=== PATIENT | male | born 1985 | race Hispanic/Latino ===

== ENCOUNTER 2017-12-20 14:43 | Emergency (ER) | payer SELFPAY ==
[~2017-12-20] VITALS: Ht 165.1 cm; Wt 70.0 kg
[2017-12-20 16:11] VITALS: BP 131/72
== END 2017-12-20 16:11 | disposition home or self-care (01) | DRG 605 ==
LOC: ED 14:43
PROC: 0HQ0XZZ Repair Scalp Skin, External Approach (ICD-10-PCS; principal; 2017-12-20)
DX: S01.01XA Laceration without foreign body of scalp, initial encounter (principal); W22.8XXA Striking against or struck by other objects, initial encounter; Y93.89 Activity, other specified; Y92.74 Orchard as the place of occurrence of the external cause; Y99.0 Civilian activity done for income or pay

== ENCOUNTER 2017-12-28 11:33 | Emergency (ER) | payer SELFPAY ==
[~2017-12-28] VITALS: Ht 165.1 cm; Wt 72.0 kg
[2017-12-28 11:55] VITALS: BP 128/79
== END 2017-12-28 11:55 | disposition home or self-care (01) | DRG 950 ==
LOC: ED 11:33
DX: S01.90XD Unspecified open wound of unspecified part of head, subsequent encounter (principal); F17.210 Nicotine dependence, cigarettes, uncomplicated; X58.XXXD Exposure to other specified factors, subsequent encounter